=== PATIENT | female | born 2005 ===

== ENCOUNTER 2025-03-26 18:49 | Emergency (ER) | payer BC, SELFPAY ==
[~2025-03-26 18:49] MED LIST: Iopamidol 300 61% 100 ML VIAL FS ONE
[2025-03-26] MEDS ORDERED: Lactulose 20 GM (30 mL) UDCUP ONE (21:48)
[2025-03-26] MEDS ORDERED: Mineral Oil ENEMA ONE (23:50)
[2025-03-26 23:51] LABS: Glucose, Urine (Dipstick) Normal (Negative); Leukocyte Negative (Negative); Protein, Urine (Dipstick) Negative (Neg-Trace); Specific Gravity, Urine 1.010 (1.005-1.030)
[2025-03-26 23:59] LABS: Bacteria/HPF None Seen HPF (None Seen); CAUTI Indications for Culture Pelvic or flank pain; RBC/HPF None Seen HPF (0-3); WBC/HPF None Seen HPF (0-3)
[2025-03-27] LABS: Urine Culture Reflex No No
[2025-03-27 00:10] LABS: #Basophils 0.05 10x3/uL (0.0-0.2); #Eosinophils 0.17 10x3/uL (0.0-0.5); #Monocytes 0.88 10x3/uL (0.0-1.1); #Neutrophils 10.68 10x3/uL (1.5-8.4); %Basophils 0.3 % (0.0-2.0); %Eosinophils 1.1 % (0.0-6.0); %Lymphocytes 25.1 % (18.0-47.0); %Monocytes 5.6 % (0.0-10.0); %Neutrophils 67.6 % (40.0-75.0); Hematocrit 37.3 % (34.9-44.5); Hemoglobin 12.6 g/dL (12.0-15.5); Mean Corpuscular Hemoglobin 28.4 pg (27.0-33.0); Mean Corpuscular Volume 84.2 fL (81.6-98.3); Platelet Count 352 10x3/uL (150-450); Red Blood Cell (RBC) Count 4.43 10x6/uL (3.90-5.03); White Blood Cell (WBC) Count 15.78 10x3/uL (3.5-10.5)
[2025-03-27 00:25] LABS: BHCG - Serum Negative (NEGATIVE); Pregs Control Background? CLEAR/WHITE (CLR/WHITE); Pregs Control Bar Appear? YES (CONTROL BAR)
[2025-03-27 00:31] LABS: ALT (SGPT) 8 U/L (Less than 34); AST (SGOT) 19 U/L (11-34); Albumin 4.0 g/dL (3.1-4.5); Alkaline Phosphatase 45 U/L (40-100); Anion Gap 12 mmol/L (10-20); BUN (Urea Nitrogen) 9 mg/dL (7.0-18.7); Bilirubin, Total 0.1 mg/dL (0.3-1.2); Calc. Creatinine Clearance 0 mL/min (70-130); Calcium 9.2 mg/dL (7.8-10.44); Carbon Dioxide 22 mmol/L (22-29); Chloride 109 mmol/L (98-107); Globulin 3.2 g/dL (2.4-3.5); Glucose 86 mg/dL (70-105); Potassium 4.1 mmol/L (3.5-5.1); Sodium 139 mmol/L (136-145)
[2025-03-27] MEDS ORDERED: Lactulose 20 GM (30 mL) UDCUP ONE (05:04)
[2025-03-27] MEDS ORDERED: Ondansetron PF 4 MG/2 ML Vial ONE (06:58)
== END 2025-03-27 07:28 | disposition home or self-care (01) ==
LOC: CSHERS 18:49
DX: K59.00 Constipation, unspecified (principal); F17.290 Nicotine dependence, other tobacco product, uncomplicated
CPT/HCPCS: 74177; 80053; 81001; 84703; 85025; 96374; 96375; 96376; J2270; J2405; Q0162; Q9967